=== PATIENT | female | born 1955 | race Caucasian/White ===

== ENCOUNTER 2017-02-04 13:35 | Outpatient (CLI) | payer BC | END 2017-02-04 20:27 | disposition home or self-care (01) | LOC: SMA 13:35 | PROVIDERS: ATTEND Internal Medicine | DX: Z12.31 Encounter for screening mammogram for malignant neoplasm of breast (principal) | CPT/HCPCS: G0202 ==

== ENCOUNTER 2018-04-20 13:04 | Outpatient (CLI) | payer BC | END 2018-04-20 20:54 | disposition home or self-care (01) | LOC: SMA 13:04 | PROVIDERS: ATTEND Internal Medicine | DX: Z12.31 Encounter for screening mammogram for malignant neoplasm of breast (principal) | CPT/HCPCS: 77067 ==

== ENCOUNTER 2020-04-10 10:55 | Outpatient (CLI) | payer BC | END 2020-04-10 21:06 | disposition home or self-care (01) | LOC: SMA 10:55 | PROVIDERS: ATTEND Internal Medicine | DX: Z12.31 Encounter for screening mammogram for malignant neoplasm of breast (principal) | CPT/HCPCS: 77067 ==